=== PATIENT | male | born 1995 | race Hispanic/Latino ===

== ENCOUNTER 2017-09-28 06:54 | Emergency (ER) | payer OTHER, SELFPAY ==
[2017-09-28 07:40] LABS: #Basophils 0.1 thou/uL (0.0-0.2); #Eosinphils 0.2 thou/uL (0.0-0.7); #Lymphocytes 2.5 thou/uL (1.20-3.40); #Monocytes 0.5 thou/uL (0.11-0.59); #Neutrophils 4.1 thou/uL (1.40-6.50); %Basophils 0.7 % (0.0-1.0); %Eosinophils 2.8 % (0.0-10.0); %Lymphocytes 33.4 % (21.0-51.0); %Monocytes 6.9 % (0.0-10.0); Hematocrit 50.6 % (42.0-52.0); Mean Platelet Volume 7.2 fL (7.4-10.4); Red Blood Cell (RBC) Count 5.58 mill/uL (4.70-6.10); White Blood Cell (WBC) Count 7.4 thou/uL (4.8-10.8)
[2017-09-28 08:01] LABS: Magnesium 2.2 mg/dL (1.6-2.6)
[2017-09-28 08:05] LABS: ALT (SGPT) 33 U/L (8-55); AST (SGOT) 17 U/L (5-34); Alkaline Phosphatase 102 U/L (40-150); Anion Gap 10 mmol/L (10-20); BUN (Urea Nitrogen) 10 mg/dL (8.9-20.6); Bilirubin, Total 0.5 mg/dL (0.2-1.2); Calc. Creatinine Clearance 0 mL/min (70-130); Calcium 9.5 mg/dL (7.8-10.44); Carbon Dioxide 25 mmol/L (22-29); Chloride 106 mmol/L (98-107); Estimated GFR-MDRD Greater than 90; Globulin 3.4 g/dL (2.4-3.5); Protein, Total 7.6 g/dL (6.0-8.3)
--- NOTE | 2017-09-28 08:11 | RAD ---
RIGHT KNEE 4 VIEWS: HISTORY: Fall with knee pain. FINDINGS: There are no signs of fracture, dislocation, or joint effusion. IMPRESSION: Negative right knee. POS: [facility]
--- NOTE | 2017-09-28 08:12 | RAD ---
KUB AND UPRIGHT: HISTORY: Abdominal pain, constipation. FINDINGS: The bowel gas pattern is nonobstructed. No free air. No radiopaque calculi or bony findings. IMPRESSION: Unremarkable abdomen series. POS: [facility]
[2017-09-28] MEDS ORDERED: Lidocaine Viscous Sol 2% 15 ml UD Cup ONE (08:46)
[2017-09-28] MEDS ORDERED: Mag-Al 1200 mg/1200 mg/30 ML UDCUP ONE (08:46)
== END 2017-09-28 08:55 | disposition home or self-care (01) ==
LOC: ERS 06:54
DX: R10.12 Left upper quadrant pain (principal); M25.561 Pain in right knee
CPT/HCPCS: 74020; 80053; 83690; 83735; 85025

== ENCOUNTER 2019-03-25 16:03 | Outpatient (CLI) | payer OTHER ==
--- NOTE | 2019-03-25 16:22 | RAD ---
RIGHT KNEE 4 VIEWS: HISTORY: Acute pain of the right knee. COMPARISON: 09/28/2017. FINDINGS: No fracture, dislocation, bony destruction is seen.
== END 2019-03-25 16:04 | disposition home or self-care (01) ==
LOC: BICRAD 16:03
PROVIDERS: ATTEND Physician Assistant
DX: M25.561 Pain in right knee (principal)

== ENCOUNTER 2020-01-24 15:42 | Emergency (ER) | payer OTHER ==
[2020-01-24] MEDS ORDERED: Proparacaine 0.5% Opth 15 ML BOT ONE (16:09)
[2020-01-24] MEDS ORDERED: Fluorescein Opthalmic Strip ONE (16:09)
== END 2020-01-24 16:27 | disposition home or self-care (01) ==
LOC: ERS 15:42
DX: H11.31 Conjunctival hemorrhage, right eye (principal)
CPT/HCPCS: 99282

== ENCOUNTER 2025-01-05 17:11 | Emergency (ER) | payer OTHER ==
[2025-01-05] MEDS ORDERED: Lidocaine 1% w/Epinephrine 1:100K 20 ML VIAL ONE (19:18)
[2025-01-05] MEDS ORDERED: Boostrix 0.5 ML (Tdap) VIAL (>/=7 yrs of age) ONE (20:26)
== END 2025-01-05 20:28 | disposition home or self-care (01) ==
LOC: ERS 17:11
DX: L02.212 Cutaneous abscess of back [any part, except buttock and flank] (principal)
CPT/HCPCS: 10180; 90471; 90715